=== PATIENT | male | born 1955 | race African-American/Black ===

== ENCOUNTER 2020-09-03 21:36 | Emergency (ER) | payer MEDICAID ==
[~2020-09-03] VITALS: Ht 182.9 cm; Wt 145.1 kg
[2020-09-03 21:43] VITALS: BP_SYST 126
[2020-09-03 23:31] LABS: BASOPHILS # (AUTO) 0.1 K/uL (0.0-0.2); BASOPHILS % (AUTO) 1.4 % (0.0-2.0); EOSINOPHILS # (AUTO) 0.2 K/uL (0.0-0.4); EOSINOPHILS % (AUTO) 5.3 % (0.0-4.0); HEMOGLOBIN 12.4 g/dL (14.0-18.0); LYMPHOCYTES % (AUTO) 26.8 % (20.5-51.5); MEAN CORPUSCULAR HEMOGLOBIN 32 pg (27-31); MEAN CORPUSCULAR HGB CONC 33 % (32-36); MEAN CORPUSCULAR VOLUME 97 fL (79.0-98.0); MONOCYTES # (AUTO) 0.5 K/uL (0.0-1.0); MONOCYTES % (AUTO) 14.6 % (1.7-9.3); NEUTROPHILS # (AUTO) 1.9 K/uL (1.8-7.7); NEUTROPHILS % (AUTO) 51.9 % (40.0-70.0); PLATELET COUNT (AUTO) 291 K/uL (130-430); RED BLOOD CELL COUNT(AUTO) 3.91 MIL/uL (4.2-6.2); RED CELL DISTRIBUTION WIDTH 15.4 % (9.0-15.0); WHITE BLOOD COUNT (AUTO) 3.7 K/uL (4.8-10.8)
[2020-09-03 23:46] LABS: CALCIUM 8.8 mg/dL (8.4-11.0); CREATININE 0.89 mg/dL (0.55-1.30); POTASSIUM 4.5 mmol/L (3.5-5.1)
[2020-09-03 23:52] LABS: ALBUMIN 2.7 g/dL (3.4-4.8); TOTAL BILIRUBIN 0.2 mg/dL (0.0-1.0)
[2020-09-04 03:30] VITALS: BP_SYST 124
== END 2020-09-04 03:32 | disposition home or self-care (01) ==
LOC: SED 21:36
DX: M79.89 Other specified soft tissue disorders (principal); M79.642 Pain in left hand
CPT/HCPCS: 36415; 80053; 82550; 83880; 84484; 85025; 93005; 93971; 99285

== ENCOUNTER 2020-09-23 13:50 | Emergency (ER) | payer MEDICAID ==
[~2020-09-23] VITALS: Ht 195.6 cm; Wt 145.1 kg
[2020-09-23 13:50] VITALS: BP_SYST 149
--- NOTE | 2020-09-23 13:50 | NUR ---
BROUGHT IN BY [facility], PLACED IN BED #3 AND TRIAGED. REPORT GIVEN TO HATTIE
--- NOTE | 2020-09-23 14:02 | NUR ---
DR WEST AT BEDSIDE FOR EVALUATION
--- NOTE | 2020-09-23 14:10 | NUR ---
Pt bib ambulance with complaint of left upper extremity swelling. Pt AAOX4 speaking full sentences. left hand and forearm are swollen. Pt reports it has never happened before but he believes it is infected form a spider bite. No bite or abcess noted. Pt resting in gurney no distress noted.
--- NOTE | 2020-09-23 14:22 | NUR ---
Lab at bedside.
--- NOTE | 2020-09-23 14:28 | NUR ---
X-ray at bedside.
[2020-09-23 14:45] LABS: BASOPHILS % (AUTO) 0.6 % (0.0-2.0); EOSINOPHILS # (AUTO) 0.2 K/uL (0.0-0.4); EOSINOPHILS % (AUTO) 3.4 % (0.0-4.0); HEMATOCRIT 37.6 % (36-54); HEMOGLOBIN 12.5 g/dL (14.0-18.0); LYMPHOCYTES % (AUTO) 20.4 % (20.5-51.5); MEAN CORPUSCULAR HEMOGLOBIN 33 pg (27-31); MEAN CORPUSCULAR HGB CONC 33 % (32-36); MEAN CORPUSCULAR VOLUME 98 fL (79.0-98.0); MONOCYTES # (AUTO) 0.5 K/uL (0.0-1.0); MONOCYTES % (AUTO) 10.4 % (1.7-9.3); NEUTROPHILS # (AUTO) 3.3 K/uL (1.8-7.7); NEUTROPHILS % (AUTO) 65.2 % (40.0-70.0); PLATELET COUNT (AUTO) 268 K/uL (130-430); RED BLOOD CELL COUNT(AUTO) 3.86 MIL/uL (4.2-6.2); RED CELL DISTRIBUTION WIDTH 15.1 % (9.0-15.0); WHITE BLOOD COUNT (AUTO) 5.1 K/uL (4.8-10.8)
[2020-09-23 14:50] LABS: CREATININE 0.77 mg/dL (0.55-1.30); POTASSIUM 4.1 mmol/L (3.5-5.1)
[2020-09-23 14:53] LABS: PROTHROMBIN TIME 10.2 SECS (9.5-12.5)
[2020-09-23 14:55] LABS: ALBUMIN 2.6 g/dL (3.4-4.8); C-REACTIVE PROTEIN QUANT 2.9 mg/dL (0-0.5); TOTAL BILIRUBIN 0.2 mg/dL (0.0-1.0)
--- NOTE | 2020-09-23 15:06 | NUR ---
Ultrasound at bedside.
--- NOTE | 2020-09-23 15:39 | NUR ---
ULTRASOUND COMPLETED, REPOSITIONED FOR COMFORT
--- NOTE | 2020-09-23 16:22 | NUR ---
# 22 gauge angiocath placed to RAC. Use of asceptic technique. Opsite placed over site. Blood return noted. Blood for lab drawn from site. Flushed with 10 cc of normal saline. No evidence of infiltration noted. Patient tolerated well.
--- NOTE | 2020-09-23 16:46 | NUR ---
Pt asleep in [facility] no distress at this time.
--- NOTE | 2020-09-23 17:08 | NUR ---
Dr. Art spoke with Dr. Matias and updated him on pt condition.
--- NOTE | 2020-09-23 17:10 | NUR ---
Called [facility] to update them on pt return to facility. Transfer ETA 1915. Pt will be going back to his room 201.
--- NOTE | 2020-09-23 18:00 | NUR ---
Pt given sandwich tray and chips. Eating independently.
--- NOTE | 2020-09-23 19:05 | NUR ---
Care endorsed to Alejandro HARP.
--- NOTE | 2020-09-23 19:06 | NUR ---
Received endorsement from day shift, AAOX4, breathing spontaneously at room air, not in distress noted. For discharge awaiting for trasnport.
[2020-09-23 19:22] VITALS: BP_SYST 148
--- NOTE | 2020-09-23 19:22 | NUR ---
Patient given written and verbal discharge instructions and verbalizes understanding. ER MD discussed with patient the results and treatment provided. Patient in stable condition. ID arm band removed. IV catheter removed intact and dressing applied, no active bleeding. No Rx of given. Patient educated to follow up with PMD. Pain Scale 0/10. Opportunity for questions provided and answered.
== END 2020-09-23 19:22 ==
LOC: SED 13:50
DX: I89.0 Lymphedema, not elsewhere classified (principal); I10 Essential (primary) hypertension
CPT/HCPCS: 36415; 73030; 80053; 83605; 85025; 85610-TC; 85730-TC; 86140; 93971; 99285

== ENCOUNTER 2022-01-29 11:03 | Inpatient (IN) | payer MEDICAID, MEDICARE ==
[~2022-01-29] VITALS: Ht 195.6 cm; Wt 190.5 kg
[2022-01-29 11:05] VITALS: BP_SYST 125
--- NOTE | 2022-01-29 11:05 | NUR ---
BROUGHT IN BY [facility] AND TRIAGED. REPORT GIVEN TO PERRI
--- NOTE | 2022-01-29 11:35 | NUR ---
MD WEST AT BEDSIDE FOR MSE.
[2022-01-29 12:21] LABS: BASOPHILS % (AUTO) 0.4 % (0.0-2.0); EOSINOPHILS # (AUTO) 0.2 K/uL (0.0-0.4); EOSINOPHILS % (AUTO) 4.8 % (0.0-4.0); HEMATOCRIT 43.3 % (36-54); HEMOGLOBIN 13.9 g/dL (14.0-18.0); LYMPHOCYTES # (AUTO) 0.7 K/uL (1.0-5.5); LYMPHOCYTES % (AUTO) 15.9 % (20.5-51.5); MEAN CORPUSCULAR HEMOGLOBIN 31 pg (27-31); MEAN CORPUSCULAR HGB CONC 32 % (32-36); MEAN CORPUSCULAR VOLUME 97 fL (79.0-98.0); MONOCYTES # (AUTO) 0.5 K/uL (0.0-1.0); MONOCYTES % (AUTO) 12.3 % (1.7-9.3); NEUTROPHILS # (AUTO) 2.8 K/uL (1.8-7.7); NEUTROPHILS % (AUTO) 66.6 % (40.0-70.0); PLATELET COUNT (AUTO) 228 K/uL (130-430); RED BLOOD CELL COUNT(AUTO) 4.45 MIL/uL (4.2-6.2); RED CELL DISTRIBUTION WIDTH 15.8 % (9.0-15.0); WHITE BLOOD COUNT (AUTO) 4.2 K/uL (4.8-10.8)
[2022-01-29 12:47] LABS: PROTHROMBIN TIME 10.6 SECS (9.5-12.5)
[2022-01-29 12:48] LABS: CALCIUM 9.1 mg/dL (8.4-11.0); CREATININE 0.83 mg/dL (0.55-1.30)
[2022-01-29 12:59] LABS: ALBUMIN 2.7 g/dL (3.4-4.8); C-REACTIVE PROTEIN QUANT 2.8 mg/dL (0-0.5); TOTAL BILIRUBIN 0.4 mg/dL (0.0-1.0)
[2022-01-29] MEDS ORDERED: FURO40TA5 PO (14:04)
[2022-01-29] MEDS ORDERED: ACET325C6 PO (14:04)
[2022-01-29] MEDS ORDERED: FAMO20TA8 PO (14:04)
[2022-01-29] MEDS ORDERED: NEU300 PO (14:04)
[2022-01-29] MEDS ORDERED: METF-379 PO (14:04)
[2022-01-29] MEDS ORDERED: IPRA3AMP9 (14:04)
[2022-01-29] MEDS ORDERED: CHOL100038 PO (14:04)
[2022-01-29] MEDS ORDERED: AMLO5TAB4 PO (14:04)
[2022-01-29] MEDS ORDERED: HYDR-3919 PO (14:04)
[2022-01-29] MEDS ORDERED: LISI20TA PO (14:04)
[2022-01-29] MEDS ORDERED: TAMS-11 PO (14:04)
[2022-01-29] MEDS ORDERED: ATOR40TA68 PO (14:04)
[2022-01-29] MEDS ORDERED: DICL100G19 TP (14:04)
[2022-01-29] MEDS ORDERED: OLAN10TA6 PO (14:04)
[2022-01-29] MEDS ORDERED: CRAN450T9 PO (14:04)
[2022-01-29] MEDS ORDERED: CHLO25TA2 PO (14:04)
[2022-01-29] MEDS ORDERED: ENZA40CA PO (14:04)
[2022-01-29] MEDS ORDERED: DIVA500T PO (14:04)
[2022-01-29] MEDS ORDERED: ESCI10TA PO (14:04)
--- NOTE | 2022-01-29 14:09 | NUR ---
Admit bed requested Patient will be admitted to care of . Admitted to MEDSURG unit. Diagnosis HEMATURIA Inpatient YES Observation NO Orientation concerns or request close to nursing station NO Covid Status NEGATIVE On vent or bipap NO Isolation requirements NO Needs a sitter NO From Home NO, [facility] Requires Dialysis NO Med Rec Completed YES
[2022-01-29] MEDS ORDERED: NACL 0.9% 1,000 ML IV ONE (14:15)
--- NOTE | 2022-01-29 14:32 | NUR ---
Called Dr. Matias regarding diet order. ordered regular diet for patient. Placed and called kitchen for a regular tray.
[2022-01-29 16:11] LABS: BILIRUBIN,URINE NEGATIVE (NEGATIVE); BLOOD, URINE 2+ (NEGATIVE); CLARITY/URINE CLEAR (CLEAR); COLOR,URINE YELLOW (YELLOW); GLUCOSE,URINE NEGATIVE (NEGATIVE); KETONES,URINE NEGATIVE (NEGATIVE); LEUKOCYTE ESTERASE ,URINE TRACE (NEGATIVE); NITRITE, URINE NEGATIVE (NEGATIVE); PH,URINE 5.5 (5.0-8.0); PROTEIN URINE NEGATIVE (NEGATIVE); UROBILINOGEN,URINE 0.2 (0.2-1.0)
[2022-01-29 16:31] LABS: BACTERIA,URINE FEW /HPF (None Seen); MUCUS,URINE None Seen /LPF (None Seen)
--- NOTE | 2022-01-29 17:48 | NUR ---
Placed in room 102A MED SURG, report given to SHEYLA HARP. ALL QUESTIONS ANSWERED. PT VSS .NAD NOTED. AAOX4. END OF CARE.
[2022-01-29 20:00] VITALS: BP_SYST 130
[2022-01-29] MEDS ORDERED: IPRATROPIUM/ALBUTEROL SULFATE 3 ML AMPUL.NEB (DUONEB) INH PRN (20:30)
[2022-01-29] MEDS: DIVALPROEX SODIUM 500 MG TAB.SR.24H (DEPAKOTE ER) PO SCH (21:00)
--- NOTE | 2022-01-29 21:00 | NUR ---
PAGED: Spoke to Dr. Matias at 2030 regarding patient at home meds. Orders were received to to continue home medications. Orders noted and carried out.
[2022-01-29] MEDS ORDERED: OLANZapine 10 MG TAB.RAPDIS PO ONE (21:45)
[2022-01-29] MEDS: GABAPENTIN 300 MG CAPSULE PO SCH (21:49)
[2022-01-29] MEDS: ATORVASTATIN 20 MG TABLET PO SCH (21:50)
[2022-01-29] MEDS: TAMSULOSIN HCL 0.4 MG CAP PO SCH (21:50)
[2022-01-29 22:00] VITALS: BP_SYST 146
[2022-01-30 00:38] VITALS: BP_SYST 133
--- NOTE | 2022-01-30 03:12 | NUR ---
Consultation Paged Reason for Consultation: Hematuria Was consult called: Y Person who was notified: Angy Consulting Physician: Johann Leiva Ordering Physician: Dr. Matias
--- NOTE | 2022-01-30 04:09 | NUR ---
Consultation Paged Reason for Consultation: Hematuria Was consult called: Y Person who was notified: Kristen Consulting Physician: Dr. Dupont Ordering Physician: Dr. Matias
[2022-01-30 06:55] LABS: BASOPHILS % (AUTO) 0.4 % (0.0-2.0); EOSINOPHILS # (AUTO) 0.2 K/uL (0.0-0.4); EOSINOPHILS % (AUTO) 5.2 % (0.0-4.0); HEMATOCRIT 39.9 % (36-54); HEMOGLOBIN 13.1 g/dL (14.0-18.0); LYMPHOCYTES # (AUTO) 0.7 K/uL (1.0-5.5); LYMPHOCYTES % (AUTO) 16.2 % (20.5-51.5); MEAN CORPUSCULAR HEMOGLOBIN 32 pg (27-31); MEAN CORPUSCULAR HGB CONC 33 % (32-36); MEAN CORPUSCULAR VOLUME 97 fL (79.0-98.0); MONOCYTES # (AUTO) 0.6 K/uL (0.0-1.0); MONOCYTES % (AUTO) 14.8 % (1.7-9.3); NEUTROPHILS # (AUTO) 2.7 K/uL (1.8-7.7); NEUTROPHILS % (AUTO) 63.4 % (40.0-70.0); PLATELET COUNT (AUTO) 235 K/uL (130-430); RED CELL DISTRIBUTION WIDTH 15.9 % (9.0-15.0); WHITE BLOOD COUNT (AUTO) 4.2 K/uL (4.8-10.8)
[2022-01-30 07:43] LABS: ALANINE AMINOTRANSFERASE 5 U/L (12-78); ALBUMIN 2.5 g/dL (3.4-4.8); ASPARTATE AMINOTRANSFERASE 10 U/L (10-37); CALCIUM 8.9 mg/dL (8.4-11.0); CHLORIDE 101 mmol/L (98-107); CREATININE 0.63 mg/dL (0.55-1.30); GLUCOSE 103 mg/dL (70-99); THYROID STIMULATING HORMONE 0.97 uIu/mL (0.36-3.74); TOTAL BILIRUBIN 0.3 mg/dL (0.0-1.0); UREA NITROGEN, BLOOD 15 mg/dL (8-21)
[2022-01-30 08:00] VITALS: BP_SYST 130
[2022-01-30 08:25] LABS: ANION GAP < 3 (5-15); GFR AFRICAN AMERICAN 164 mL/min (>90)
[2022-01-30] MEDS: FUROSEMIDE 40 MG TABLET PO SCH (09:27)
[2022-01-30] MEDS: metFORMIN HCL 500 MG TABLET PO SCH ×2 (09:28→17:38)
[2022-01-30] MEDS: CITALOPRAM HYDROBROMIDE 20 MG TABLET PO SCH (09:28)
[2022-01-30] MEDS: GABAPENTIN 300 MG CAPSULE PO SCH ×3 (09:28→20:33)
[2022-01-30] MEDS: lisinopriL 20 MG TABLET PO SCH (09:29)
[2022-01-30] MEDS: FAMOTIDINE 20 MG TABLET PO SCH (09:29)
[2022-01-30] MEDS: amLODIPine BESYLATE 5 MG TABLET PO SCH (09:30)
[2022-01-30 09:44] LABS: CHOLESTEROL 146 mg/dL (<200); HDL CHOLESTEROL 71 mg/dL (>45); LDL CHOLESTEROL 64 mg/dL (<100); TRIGLYCERIDES 56 mg/dL (30-150)
[2022-01-30] MEDS: CHLORTHALIDONE 25 MG TABLET (HYGROTON) PO SCH (10:13)
[2022-01-30 11:21] VITALS: BP_SYST 102
[2022-01-30 11:23] VITALS: BP_SYST 135
[2022-01-30 15:21] VITALS: BP_SYST 122
[2022-01-30 20:00] VITALS: BP_SYST 112
--- NOTE | 2022-01-30 20:05 | NUR ---
Opening notes/no hematuria noted Pt alert, awake, watching TV. No s/s distress noted. Pt incontinent of urine, pad changed, no hematuria noted. Call light within reach. Pt c/o itching L. hand/arm, redness and 1+ edema noted, lotion applied per pt request with some relief. Bed low, locked, siderails up x3, alarm on. To monitor.
[2022-01-30] MEDS: OLANZapine 10 MG TAB.RAPDIS PO SCH (20:32)
[2022-01-30] MEDS: TAMSULOSIN HCL 0.4 MG CAP PO SCH (20:33)
[2022-01-30] MEDS: DIVALPROEX SODIUM 500 MG TAB.SR.24H (DEPAKOTE ER) PO SCH (20:33)
[2022-01-30] MEDS: ATORVASTATIN 20 MG TABLET PO SCH (20:33)
--- NOTE | 2022-01-30 22:40 | NUR ---
IV RE-INSERTION: IV pulled out. Restarted on R. hand 22G good blood return. Will observe for any signs of infiltration. Pt tolerated well.
[2022-01-31 00:35] VITALS: BP_SYST 116
--- NOTE | 2022-01-31 06:30 | NUR ---
Closing notes Pt asleep, easily awakens no s/s distress noted. IV saline lock R. hand 22G. Call light within reach. Bed low, locked, siderails up x3, alarm on. To endorse to AM nurse.
[2022-01-31 06:44] LABS: BASOPHILS % (AUTO) 0.4 % (0.0-2.0); EOSINOPHILS # (AUTO) 0.2 K/uL (0.0-0.4); EOSINOPHILS % (AUTO) 3.3 % (0.0-4.0); HEMATOCRIT 38.7 % (36-54); HEMOGLOBIN 12.6 g/dL (14.0-18.0); LYMPHOCYTES # (AUTO) 1.4 K/uL (1.0-5.5); LYMPHOCYTES % (AUTO) 29.7 % (20.5-51.5); MEAN CORPUSCULAR HEMOGLOBIN 32 pg (27-31); MEAN CORPUSCULAR HGB CONC 33 % (32-36); MEAN CORPUSCULAR VOLUME 97 fL (79.0-98.0); MONOCYTES # (AUTO) 0.6 K/uL (0.0-1.0); MONOCYTES % (AUTO) 13.8 % (1.7-9.3); NEUTROPHILS # (AUTO) 2.5 K/uL (1.8-7.7); NEUTROPHILS % (AUTO) 52.8 % (40.0-70.0); PLATELET COUNT (AUTO) 241 K/uL (130-430); RED BLOOD CELL COUNT(AUTO) 3.97 MIL/uL (4.2-6.2); RED CELL DISTRIBUTION WIDTH 15.7 % (9.0-15.0); WHITE BLOOD COUNT (AUTO) 4.6 K/uL (4.8-10.8)
[2022-01-31 07:11] LABS: CALCIUM 8.6 mg/dL (8.4-11.0); CHLORIDE 101 mmol/L (98-107); CREATININE 0.82 mg/dL (0.55-1.30); GLUCOSE 133 mg/dL (70-99); UREA NITROGEN, BLOOD 20 mg/dL (8-21)
[2022-01-31 07:41] LABS: ANION GAP < 3 (5-15); GFR AFRICAN AMERICAN 121 mL/min (>90)
--- NOTE | 2022-01-31 07:41 | NUR ---
Received call from [facility]/lab with critical lab value: CO2 result 41. Will notify doctor.
[2022-01-31 08:06] LABS: % FREE PSA 12.5 % (.); FREE PSA 18.3 ng/mL
[2022-01-31] MEDS: GABAPENTIN 300 MG CAPSULE PO SCH ×3 (09:31→21:22)
[2022-01-31] MEDS: metFORMIN HCL 500 MG TABLET PO SCH ×2 (09:31→17:29)
[2022-01-31] MEDS: lisinopriL 20 MG TABLET PO SCH (09:32)
[2022-01-31] MEDS: FAMOTIDINE 20 MG TABLET PO SCH (09:33)
[2022-01-31] MEDS: FUROSEMIDE 40 MG TABLET PO SCH (09:33)
[2022-01-31] MEDS: CITALOPRAM HYDROBROMIDE 20 MG TABLET PO SCH (09:33)
[2022-01-31 09:35] VITALS: BP_SYST 125
[2022-01-31] MEDS: CHLORTHALIDONE 25 MG TABLET (HYGROTON) PO SCH (09:35)
--- NOTE | 2022-01-31 09:35 | NUR ---
Scheduled medications given per order. Patient stable; resting comfortably in bed with no complaint of pain at this time.
[2022-01-31] MEDS: OLANZapine 10 MG TAB.RAPDIS PO SCH ×2 (09:36→21:21)
[2022-01-31] MEDS: amLODIPine BESYLATE 5 MG TABLET PO SCH (09:37)
--- NOTE | 2022-01-31 10:29 | NUR ---
Discharge Planning: DCP faxed to Kaleigh Pena [phone] DCP to follow up
[2022-01-31 11:27] VITALS: BP_SYST 111
--- NOTE | 2022-01-31 13:35 | NUR ---
Patient stable; resting comfortably in bed with eyes closed at this time.
--- NOTE | 2022-01-31 14:15 | NUR ---
Scheduled medication given per order. Patient resting quietly in bed with no distress noted.
[2022-01-31 15:31] VITALS: BP_SYST 141
--- NOTE | 2022-01-31 17:30 | NUR ---
Scheduled po medication given per order. Patient stable at this time.
--- NOTE | 2022-01-31 18:50 | NUR ---
Patient eating dinner at this time. Patient stable throughout shift.
[2022-01-31 20:00] VITALS: BP_SYST 104
--- NOTE | 2022-01-31 20:00 | NUR ---
pt alert and oriented x 4, Chadian speaker, pt is bed bound and very obese. denies pain .
[2022-01-31] MEDS: TAMSULOSIN HCL 0.4 MG CAP PO SCH (21:22)
[2022-01-31] MEDS: ATORVASTATIN 20 MG TABLET PO SCH (21:22)
[2022-01-31] MEDS: DIVALPROEX SODIUM 500 MG TAB.SR.24H (DEPAKOTE ER) PO SCH (21:22)
[2022-02-01] VITALS: BP_SYST 112
--- NOTE | 2022-02-01 02:00 | NUR ---
pt is was cleaned, he voided and no bowel movement at this time.
[2022-02-01 07:59] VITALS: BP_SYST 106
--- NOTE | 2022-02-01 07:59 | NUR ---
INITIAL ROUNDS Received pt AAOx3, no c/o shortness of breath, no c/o pain or discomfort. Plan of care for the day reviewed with pt-pt verbalized his understanding. Pt repositioned with pillow support for skin care and comfort. Pain management, disease process, skin and safety discussed-teach back done. Call light within reach.
[2022-02-01] MEDS: amLODIPine BESYLATE 5 MG TABLET PO SCH (10:22)
[2022-02-01] MEDS: FAMOTIDINE 20 MG TABLET PO SCH (10:23)
[2022-02-01] MEDS: lisinopriL 20 MG TABLET PO SCH (10:23)
[2022-02-01] MEDS: CITALOPRAM HYDROBROMIDE 20 MG TABLET PO SCH (10:23)
[2022-02-01] MEDS: FUROSEMIDE 40 MG TABLET PO SCH (10:23)
[2022-02-01] MEDS: GABAPENTIN 300 MG CAPSULE PO SCH ×3 (10:23→20:50)
[2022-02-01] MEDS: metFORMIN HCL 500 MG TABLET PO SCH ×2 (10:29→19:35)
[2022-02-01] MEDS: OLANZapine 10 MG TAB.RAPDIS PO SCH ×2 (10:29→20:56)
[2022-02-01] MEDS: CHLORTHALIDONE 25 MG TABLET (HYGROTON) PO SCH (15:26)
[2022-02-01 17:28] VITALS: BP_SYST 93
--- NOTE | 2022-02-01 19:26 | NUR ---
CLOSING NOTE Pt resting in bed with no c/o pain or discomfort, no s/s resp distress. Pt had to be calmed down-pt was yelling because he wanted a brownie-and the kitchen was out of brownies, Pt given apple cobbler instead, pt asked not to shout-pt verbalized his understanding. Needs met. Endorsed care to plant operator/shift supervisor nurse. All precautions remain in place. Call light within reach.
[2022-02-01 20:00] VITALS: BP_SYST 130
--- NOTE | 2022-02-01 20:15 | NUR ---
pt kept on yelling to get his dessert. nurse called security since the pat wont hear any nurses suggestion.
[2022-02-01] MEDS: DIVALPROEX SODIUM 500 MG TAB.SR.24H (DEPAKOTE ER) PO SCH (20:49)
[2022-02-01] MEDS: ATORVASTATIN 20 MG TABLET PO SCH (20:50)
[2022-02-01] MEDS: TAMSULOSIN HCL 0.4 MG CAP PO SCH (20:50)
--- NOTE | 2022-02-01 22:35 | NUR ---
opening notes pt is yelling to get his brownies. pt isn't happy with it. tried to explaining the patient that kitchen is closed.
[2022-02-02] VITALS: BP_SYST 119
[2022-02-02] MEDS: HYDROcodone/ACETAMIN 5-325 MG TAB (NORCO/ VICODIN) PO PRN (02:38)
--- NOTE | 2022-02-02 02:45 | NUR ---
pt is complaining about the pain in the head related headache. pt waiting for medication
[2022-02-02] MEDS: metFORMIN HCL 500 MG TABLET PO SCH ×2 (08:00→18:13)
[2022-02-02 08:31] LABS: BASOPHILS % (AUTO) 0.4 % (0.0-2.0); EOSINOPHILS # (AUTO) 0.2 K/uL (0.0-0.4); EOSINOPHILS % (AUTO) 4.8 % (0.0-4.0); HEMOGLOBIN 13.1 g/dL (14.0-18.0); LYMPHOCYTES # (AUTO) 0.8 K/uL (1.0-5.5); LYMPHOCYTES % (AUTO) 16.6 % (20.5-51.5); MEAN CORPUSCULAR HEMOGLOBIN 32 pg (27-31); MEAN CORPUSCULAR HGB CONC 33 % (32-36); MEAN CORPUSCULAR VOLUME 97 fL (79.0-98.0); MONOCYTES # (AUTO) 0.7 K/uL (0.0-1.0); MONOCYTES % (AUTO) 15.1 % (1.7-9.3); NEUTROPHILS # (AUTO) 2.9 K/uL (1.8-7.7); NEUTROPHILS % (AUTO) 63.1 % (40.0-70.0); PLATELET COUNT (AUTO) 270 K/uL (130-430); WHITE BLOOD COUNT (AUTO) 4.6 K/uL (4.8-10.8)
--- NOTE | 2022-02-02 08:45 | NUR ---
INITIAL ROUNDS Received pt AAOx3, no c/o shortness of breath, no c/o pain or discomfort. Plan of care for the day reviewed with pt-pt verbalized his understanding. Pt repositioned to eat his breakfast. Pain management, disease process, skin and safety discussed-teach back done. Call light within reach.
[2022-02-02] MEDS: FAMOTIDINE 20 MG TABLET PO SCH (10:45)
[2022-02-02] MEDS: OLANZapine 10 MG TAB.RAPDIS PO SCH ×2 (10:46→22:54)
[2022-02-02] MEDS: CITALOPRAM HYDROBROMIDE 20 MG TABLET PO SCH (10:46)
[2022-02-02] MEDS: amLODIPine BESYLATE 5 MG TABLET PO SCH (10:46)
[2022-02-02] MEDS: FUROSEMIDE 40 MG TABLET PO SCH (10:47)
[2022-02-02] MEDS: lisinopriL 20 MG TABLET PO SCH (10:47)
[2022-02-02] MEDS: GABAPENTIN 300 MG CAPSULE PO SCH ×3 (10:48→22:13)
[2022-02-02] MEDS: CHLORTHALIDONE 25 MG TABLET (HYGROTON) PO SCH (10:48)
[2022-02-02 11:15] VITALS: BP_SYST 105
[2022-02-02] MEDS: PROMETHAZINE-DM 6.25 MG-15 MG/5 ML UDC PO PRN (13:07)
[2022-02-02 15:21] VITALS: BP_SYST 98
--- NOTE | 2022-02-02 16:49 | NUR ---
ROUNDS/IT SECURITY ENGINEER Pt seen by Shirley BUTLER and informed her that the bone scan was cancelled due to patient over weight limit per cancellation notes-she stated she will check on what else can be done. IT SECURITY ENGINEER also shown sputum pt spitting up today-informed her of breathing treatments and cough syrup, no new orders. Pt with no complaints of pain or discomfort, no c/o coughing at this time. All precautions remain in place. Call light within reach.
--- NOTE | 2022-02-02 19:03 | NUR ---
CLOSING NOTE Pt resting quietly in bed with no s/s resp distress, no c/o pain or discomfort. Pt eating turkey sandwich-pt did not like his dinner. Pt asked to not scream out and to use the call light-pt stated "okay, I was just hungry". All precautions remain in place. Call light within reach.
[2022-02-02 20:05] VITALS: BP_SYST 110
[2022-02-02] MEDS: DOCUSATE SODIUM 100 MG CAPSULE PO SCH (22:13)
[2022-02-02] MEDS: TAMSULOSIN HCL 0.4 MG CAP PO SCH (22:13)
[2022-02-02] MEDS: ATORVASTATIN 20 MG TABLET PO SCH (22:13)
[2022-02-02] MEDS: DIVALPROEX SODIUM 500 MG TAB.SR.24H (DEPAKOTE ER) PO SCH (22:55)
[2022-02-03 01:25] VITALS: BP_SYST 98
[2022-02-03] MEDS ORDERED: PROMETHAZINE-DM 6.25 MG-15 MG/5 ML UDC ONE ×2 (03:23→23:26)
--- NOTE | 2022-02-03 07:38 | NUR ---
PATIENT NOTED WITH AN UNEVENTFUL SHIFT- NOTE eMAR AND FLOWSHEETS THIS SHIFT. PATIENT KEPT CLEAN AND DRY D/T INCONTINENCE. VSS AND DENIES PAIN OR DISTRESS AT THIS TIME. WILL CONTINUE POC AND ENDORSE TO ONCOMING RN.
--- NOTE | 2022-02-03 08:53 | NUR ---
Discharge Planning: DCP faxed updated clinicals to Kaleigh Pena [phone]. DCP pending room.
[2022-02-03] MEDS: CHLORTHALIDONE 25 MG TABLET (HYGROTON) PO SCH (09:00)
[2022-02-03] MEDS: lisinopriL 20 MG TABLET PO SCH (09:00)
[2022-02-03] MEDS: FUROSEMIDE 40 MG TABLET PO SCH (09:00)
[2022-02-03] MEDS: amLODIPine BESYLATE 5 MG TABLET PO SCH (09:00)
[2022-02-03] MEDS: OLANZapine 10 MG TAB.RAPDIS PO SCH ×2 (09:19→22:00)
[2022-02-03] MEDS: FAMOTIDINE 20 MG TABLET PO SCH (09:20)
[2022-02-03] MEDS: CITALOPRAM HYDROBROMIDE 20 MG TABLET PO SCH (09:20)
[2022-02-03] MEDS: GABAPENTIN 300 MG CAPSULE PO SCH ×3 (09:20→21:59)
[2022-02-03] MEDS: metFORMIN HCL 500 MG TABLET PO SCH ×2 (09:21→17:55)
[2022-02-03 11:23] VITALS: BP_SYST 117
[2022-02-03 15:27] VITALS: BP_SYST 139
--- NOTE | 2022-02-03 19:31 | NUR ---
PATIENT RESTING COMFORTABLY IN BED, NO C/O PAIN OR DISCOMFORT AT THIS TIME, WILL ENDORSE CARE TO PM NURSE
[2022-02-03 20:00] VITALS: BP_SYST 93
[2022-02-03] MEDS: TAMSULOSIN HCL 0.4 MG CAP PO SCH (21:58)
[2022-02-03] MEDS: ATORVASTATIN 20 MG TABLET PO SCH (21:58)
[2022-02-03] MEDS: DOCUSATE SODIUM 100 MG CAPSULE PO SCH (21:58)
[2022-02-03] MEDS: DIVALPROEX SODIUM 500 MG TAB.SR.24H (DEPAKOTE ER) PO SCH (21:59)
[2022-02-04 00:11] VITALS: BP_SYST 110
[2022-02-04 08:00] VITALS: BP_SYST 118
--- NOTE | 2022-02-04 08:00 | NUR ---
Notes- Alert, denies any pain and bleeding in the urine. Pt uses urinal, No distress. Call light within reach. Enc to call for help as needed.
[2022-02-04] MEDS: PROMETHAZINE-DM 6.25 MG-15 MG/5 ML UDC PO PRN ×2 (09:12→20:19)
[2022-02-04] MEDS: GABAPENTIN 300 MG CAPSULE PO SCH ×3 (09:12→22:10)
[2022-02-04] MEDS: CITALOPRAM HYDROBROMIDE 20 MG TABLET PO SCH (09:12)
[2022-02-04] MEDS: lisinopriL 20 MG TABLET PO SCH (09:13)
[2022-02-04] MEDS: FUROSEMIDE 40 MG TABLET PO SCH (09:14)
[2022-02-04] MEDS: FAMOTIDINE 20 MG TABLET PO SCH (09:14)
[2022-02-04] MEDS: OLANZapine 10 MG TAB.RAPDIS PO SCH ×2 (09:15→22:12)
[2022-02-04] MEDS: amLODIPine BESYLATE 5 MG TABLET PO SCH (09:15)
[2022-02-04] MEDS: CHLORTHALIDONE 25 MG TABLET (HYGROTON) PO SCH (09:16)
[2022-02-04] MEDS: metFORMIN HCL 500 MG TABLET PO SCH ×2 (09:16→17:31)
--- NOTE | 2022-02-04 11:00 | NUR ---
Notes- resting, No distress. Provided more blanket as requested.
[2022-02-04 11:40] VITALS: BP_SYST 123
[2022-02-04 15:51] VITALS: BP_SYST 125
[2022-02-04] MEDS ORDERED: BICALUTAMIDE 50 MG TABLET PO ONE (16:00)
--- NOTE | 2022-02-04 16:13 | NUR ---
placed a call to call the car for picked bet 6 pm to 6;30 pm tonight. spoke with annamarie. going to [facility]. s bariatric bed.
[2022-02-04 17:02] VITALS: BP_SYST 125
--- NOTE | 2022-02-04 19:04 | NUR ---
Notes- still waiting for the ride,ride called and they gonna be late.
[2022-02-04 20:00] VITALS: BP_SYST 107
--- NOTE | 2022-02-04 20:46 | NUR ---
WU AT [facility] CALLED TO NOTIFY THIS RN THAT PATIENT CAN'T BE MOVED D/T HIS WEIGHT AND THE SIZE OF STRETCHER THEY HAVE- NOTE CALL A CART CAN BE REACHED AT [phone]. WU DID VOICE HE WOULD RESCHEDULE TRANSPORTATION FOR IN THE MORNING AND TRY TO ACCOMMODATE TRANSFER. CHARGE NURSE AWARE.
--- NOTE | 2022-02-04 20:50 | NUR ---
call a car they are unable to accomadate transfer tonight due to weight
[2022-02-04] MEDS: ATORVASTATIN 20 MG TABLET PO SCH (22:10)
[2022-02-04] MEDS: DOCUSATE SODIUM 100 MG CAPSULE PO SCH (22:10)
[2022-02-04] MEDS: DIVALPROEX SODIUM 500 MG TAB.SR.24H (DEPAKOTE ER) PO SCH (22:11)
[2022-02-04] MEDS: TAMSULOSIN HCL 0.4 MG CAP PO SCH (22:12)
[2022-02-05 00:03] VITALS: BP_SYST 160
[2022-02-05 02:00] VITALS: BP_SYST 110
[2022-02-05] MEDS: PROMETHAZINE-DM 6.25 MG-15 MG/5 ML UDC PO PRN ×2 (05:57→09:50)
[2022-02-05 06:49] LABS: CALCIUM 8.4 mg/dL (8.4-11.0); CREATININE 0.81 mg/dL (0.55-1.30)
--- NOTE | 2022-02-05 07:12 | NUR ---
PATIENT NOTED WITH AN UNEVENTFUL SHIFT- NOTE eMAR AND FLOWSHEETS THIS SHIFT. PATIENT KEPT CLEAN AND DRY D/T INCONTINENCE NO BLOOD NOTED IN THE URINE THIS SHIFT. VSS AND DENIES PAIN OR DISTRESS AT THIS TIME. NOTE PT HAS DISCHARGE ORDERS AND [facility] WAS UNABLE TO ACCOMMODATE LAST NIGHT- CALL A CART TO ARRANGE FOR THIS TRANSPORT THIS MORNING OTHERWISE HAVE CM FOLLOW-UP. WILL CONTINUE POC AND ENDORSE TO ONCOMING RN.
[2022-02-05 07:44] LABS: BASOPHILS % (AUTO) 0.5 % (0.0-2.0); EOSINOPHILS # (AUTO) 0.2 K/uL (0.0-0.4); EOSINOPHILS % (AUTO) 4.2 % (0.0-4.0); HEMATOCRIT 38.9 % (36-54); HEMOGLOBIN 12.9 g/dL (14.0-18.0); LYMPHOCYTES % (AUTO) 20.7 % (20.5-51.5); MEAN CORPUSCULAR HEMOGLOBIN 32 pg (27-31); MEAN CORPUSCULAR HGB CONC 33 % (32-36); MEAN CORPUSCULAR VOLUME 97 fL (79.0-98.0); MONOCYTES # (AUTO) 0.7 K/uL (0.0-1.0); NEUTROPHILS # (AUTO) 2.8 K/uL (1.8-7.7); NEUTROPHILS % (AUTO) 59.6 % (40.0-70.0); PLATELET COUNT (AUTO) 284 K/uL (130-430); RED BLOOD CELL COUNT(AUTO) 4.02 MIL/uL (4.2-6.2); RED CELL DISTRIBUTION WIDTH 15.7 % (9.0-15.0); WHITE BLOOD COUNT (AUTO) 4.7 K/uL (4.8-10.8)
[2022-02-05 08:05] VITALS: BP_SYST 116
[2022-02-05] MEDS ORDERED: BICALUTAMIDE 50 MG TABLET PO SCH (09:00)
[2022-02-05] MEDS: OLANZapine 10 MG TAB.RAPDIS PO SCH (09:47)
[2022-02-05] MEDS: metFORMIN HCL 500 MG TABLET PO SCH (09:47)
[2022-02-05] MEDS: GABAPENTIN 300 MG CAPSULE PO SCH (09:47)
[2022-02-05] MEDS: lisinopriL 20 MG TABLET PO SCH (09:48)
[2022-02-05] MEDS: FUROSEMIDE 40 MG TABLET PO SCH (09:48)
[2022-02-05] MEDS: CITALOPRAM HYDROBROMIDE 20 MG TABLET PO SCH (09:49)
[2022-02-05] MEDS: FAMOTIDINE 20 MG TABLET PO SCH (09:49)
[2022-02-05] MEDS: amLODIPine BESYLATE 5 MG TABLET PO SCH (09:49)
[2022-02-05] MEDS: CHLORTHALIDONE 25 MG TABLET (HYGROTON) PO SCH (09:58)
[2022-02-05] MEDS: HYDROcodone/ACETAMIN 5-325 MG TAB (NORCO/ VICODIN) PO PRN (10:01)
[2022-02-05 11:23] VITALS: BP_SYST 110
--- NOTE | 2022-02-05 12:00 | NUR ---
REPORT NOTES: REPORT GIVEN TO BROOKLYN BARROS FROM [facility]. UNDER DR MARTINEZ IN ROOM 202-A.
--- NOTE | 2022-02-05 12:10 | NUR ---
DISCHARGE TRANSFER NOTES: TRANSFER PACKETS GIVEN TO [facility]. KEPT IV TO SALINE LOCK DURING TRANSFER. PATIENT TO CALL HIS FAMILY REGARDING HIS TRANSFER.[facility] TRANSPORTED PATIENT TO [facility] IN STABLE CONDITION TO ROOM 202-A.
== END 2022-02-05 16:47 | DRG 500 ==
LOC: SED 11:03 → SMU 14:04
PROVIDERS: ADMIT Internal Medicine; ATTEND Internal Medicine
PROC: 0T9B70Z Drainage of Bladder with Drainage Device, Via Natural or Artificial Opening (ICD-10-PCS; principal; 2022-01-29)
DX: C61 Malignant neoplasm of prostate (principal); J96.91 Respiratory failure, unspecified with hypoxia; E43 Unspecified severe protein-calorie malnutrition; C77.9 Secondary and unspecified malignant neoplasm of lymph node, unspecified; C79.51 Secondary malignant neoplasm of bone; N30.41 Irradiation cystitis with hematuria; E11.9 Type 2 diabetes mellitus without complications; E66.01 Morbid (severe) obesity due to excess calories; Z68.42 Body mass index [BMI] 45.0-49.9, adult; F20.9 Schizophrenia, unspecified; Z20.822 Contact with and (suspected) exposure to COVID-19; E78.5 Hyperlipidemia, unspecified; I10 Essential (primary) hypertension; M16.0 Bilateral primary osteoarthritis of hip; K59.00 Constipation, unspecified; Z79.1 Long term (current) use of non-steroidal anti-inflammatories (NSAID); Z79.899 Other long term (current) drug therapy
CPT/HCPCS: 36415; 76376; 80048; 80053; 80061; 81000; 82150; 83605; 83690; 84153; 84403; 84443; 85025; 85610-TC; 85730-TC; 86140; 87081; 87086; 93971; 96360; 99285; J7030